=== PATIENT | female | born 2000 | race Caucasian/White ===

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

== ENCOUNTER → 2020-01-09 | Outpatient (CLI) | payer OTHER ==
[2020-01-09 13:43] LABS: HCT 44.7 % (34.0-46.0); HGB 14.2 gm/dL (11.4-16.0); MCH 26.4 pg (25.0-35.0); MCHC 31.9 g/dL (31.0-37.0); MCV 82.7 fL (80.0-100.0); Mean Platelet Volume 8.4; Platelet Count 333 k/uL (150-450); RDW 13.8 % (11.5-15.5); WBC 11.2 k/uL (4.0-11.0)
[2020-01-09 14:34] LABS: Appearance,Urine Clear (Clear); Bilirubin,Urine Negative (Negative); Blood,Urine Negative (Negative); Color,Urine Yellow; Glucose,Urine (UA) Negative (Negative); Ketones,Urine Negative (Negative); Leukocyte Esterase,Urine Negative (Negative); Nitrite,Urine Negative (Negative); PH, Urine 6.5 (5.0-8.0); Protein,Urine Negative (Negative); Specific Gravity,Urine 1.016 (1.001-1.035); Urobilinogen,Urine <2.0 mg/dL (<2.0)
[2020-01-09 18:35] LABS: Ferritin 30.1 ng/mL (10.0-291.0)
[2020-01-09 18:46] LABS: % Iron Saturation 8.33 (12.00-45.00); African American GFR (CKD) 107.4 (60.0-200.0); Albumin 4.5 g/dL (3.80-4.90); Albumin/Globulin Ratio 1.41 (1.60-3.17); Anion Gap 7.9 mmol/L (4.00-12.00); BUN/Creat Ratio 8.89 Ratio (12.00-20.00); Calcium 9.5 mg/dL (8.7-10.3); Carbon Dioxide 28.1 mmol/L (21.6-31.8); Globulin 3.2 g/dL (1.6-3.3); Non-African American GFR(CKD) 92.7 (60.0-200.0); Potassium 3.9 mmol/L (3.5-5.5); Total Bilirubin 0.5 mg/dL (0.2-1.2); Total Protein 7.7 g/dL (6.2-8.2)
== END | disposition home or self-care (01) ==
LOC: LABWHC1 13:21
PROVIDERS: ATTEND Internal Medicine
DX: N28.1 Cyst of kidney, acquired (principal); N39.0 Urinary tract infection, site not specified; D64.9 Anemia, unspecified; E55.9 Vitamin D deficiency, unspecified
CPT/HCPCS: 36415; 80053; 81003; 82306; 82728; 83540; 83550; 85027; 87086

== ENCOUNTER 2020-02-13 07:06 | Emergency (ER) | payer OTHER ==
[2020-02-13 07:15] VITALS: TEMP 98.1
[2020-02-13] MEDS ORDERED: SODIUM CHLORIDE 0.9% 1,000 ML IV STA (07:25)
--- NOTE | 2020-02-13 07:28 | ED ---
General Adult HPI - General Chief complaint: Syncope Stated complaint: Black outs Time Seen by Provider: 02/13/20 07:16 Source: patient, RN notes reviewed, old records reviewed Mode of arrival: ambulatory Limitations: no limitations - History of Present Illness Initial comments: 19-year-old female with history of PCO last, history of cyst on her kidney presenting with hematuria and near syncope. Patient was standing from bed this morning, she felt very lightheaded, she had some blurry vision and ringing in her ears and felt as though she was about to pass out. She denies any chest pain or palpitations associated with this. No abdominal pain. She's had no recent nausea vomiting or diarrhea. She said 2 days of blood in her urine. She does follow with nephrology and has history of cyst on her kidney. She denies significant back or flank pain. Denies fever. Denies URI symptoms. Denies cough or dyspnea. Symptoms of lightheadedness, ringing in ears and blurred vision have all resolved. - Related Data Home Medications Medication Instructions Recorded Confirmed Ibuprofen [Motrin] 800 mg PO Q6HR PRN 07/03/17 12/03/17 acetaZOLAMIDE [Diamox Sequels] 1,000 mg PO DAILY 07/03/17 12/03/17 Gabapentin [Neurontin] 300 mg PO BID 09/23/17 12/03/17 Acetaminophen Tab [Tylenol Tab] 325 - 650 mg PO Q6H PRN 10/24/17 12/03/17 Mirtazapine [Remeron] 30 mg PO HS 10/24/17 12/03/17 Amitriptyline HCl [Elavil] 10 mg PO HS 12/03/17 12/03/17 Norgestimate-Ethinyl Estradiol 1 tab PO DAILY 12/03/17 12/03/17 [Ortho Tri-Cyclen 28 Tablet] Previous Rx's Medication Instructions Recorded Ketorolac [Toradol] 10 mg PO DAILY PRN #10 tab 12/03/17 Cephalexin [Keflex] 500 mg PO Q12HR #20 cap 02/13/20 Allergies Allergy/AdvReac Type Severity Reaction Status Date / Time No Known Allergies Allergy Verified 12/03/17 18:38 Review of Systems ROS Statement: Those systems with pertinent positive or pertinent negative responses have been documented in the HPI. ROS Other: All systems not noted in ROS Statement are negative. Past Medical History Past Medical History: No Reported History Additional Past Medical History / Comment(s): chronic headaches, IIH History of Any Multi-Drug Resistant Organisms: None Reported Past Surgical History: No Surgical Hx Reported Additional Past Surgical History / Comment(s): wisdom teeth removal. Past Psychological History: No Psychological Hx Reported Smoking Status: Never smoker Past Alcohol Use History: None Reported Past Drug Use History: None Reported General Exam Limitations: no limitations General appearance: alert, in no apparent distress Head exam: Present: atraumatic, normocephalic Eye exam: Present: normal appearance, PERRL ENT exam: Present: normal oropharynx, mucous membranes dry Neck exam: Present: normal inspection. Absent: tenderness, meningismus Respiratory exam: Present: normal lung sounds bilaterally, respiratory distress Cardiovascular Exam: Present: regular rate, normal rhythm GI/Abdominal exam: Present: soft, distended, tenderness Extremities exam: Present: normal inspection, normal capillary refill. Absent: pedal edema Neurological exam: Present: alert, oriented X3, CN II-XII intact. Absent: motor sensory deficit Psychiatric exam: Present: normal affect, normal mood Skin exam: Present: warm, dry, intact. Absent: cyanosis, diaphoretic Course Vital Signs 02/13/20 02/13/20 02/13/20 07:10 07:15 07:57 Temperature 98.1 F Pulse Rate 106 H 92 Respiratory 18 20 Rate Blood Pressure 122/85 O2 Sat by Pulse 98 Oximetry 02/13/20 02/13/20 08:00 08:15 Temperature Pulse Rate 92 92 Respiratory 18 Rate Blood Pressure 124/80 124/80 O2 Sat by Pulse 95 95 Oximetry EKG Findings - EKG Comments: EKG Findings:: EKG: Normal sinus rhythm, rate of 84, WA interval 136, QRS duration 84, QTC [address] segment elevation. Medical Decision Making - Medical Decision Making 19-year-old female with hematuria, near-syncope, dehydration. Initially patient is mildly tachycardic, symptoms consistent with orthostatic hypotension and near syncope. Given IV fluids. CBC within normal limits including stable hemog lobin. Patient has normal electrolytes, normal kidney function. She does have urinalysis consistent with UTI and cultures obtained. She is started on ceftriaxone in the emergency department and prescribed Keflex. She will maintain oral hydration at home. She will return with worsening or changing symptoms. - Lab Data Result diagrams: 02/13/20 07:45 02/13/20 07:45 Lab Results 02/13/20 02/13/20 02/13/20 Range/Units 07:45 07:45 07:45 WBC 10.4 (4.0-11.0) k/uL RBC 5.29 (3.80-5.40) m/uL Hgb 14.0 (11.4-16.0) gm/dL Hct 43.3 (34.0-46.0) % MCV 81.9 (80.0-100.0) fL MCH 26.5 (25.0-35.0) pg MCHC 32.4 (31.0-37.0) g/dL RDW 13.5 (11.5-15.5) % Plt Count 311 (150-450) k/uL Neutrophils % 61 % Lymphocytes % 28 % Monocytes % 4 % Eosinophils % 4 % Basophils % 1 % Neutrophils # 6.3 (1.3-7.7) k/uL Lymphocytes # 2.9 (1.0-4.8) k/uL Monocytes # 0.4 (0-1.0) k/uL Eosinophils # 0.4 (0-0.7) k/uL Basophils # 0.1 (0-0.2) k/uL PT 10.2 (9.0-12.0) sec INR 1.0 (<1.2) APTT 24.0 (22.0-30.0) sec Sodium (137-145) mmol/L Potassium (3.5-5.1) mmol/L Chloride (98-107) mmol/L Carbon Dioxide (22-30) mmol/L Anion Gap mmol/L BUN (7-17) mg/dL Creatinine (0.52-1.04) mg/dL Est GFR (CKD-EPI)AfAm (>60 ml/min/1.73 sqM) Est GFR (CKD-EPI)NonAf (>60 ml/min/1.73 sqM) Glucose (74-99) mg/dL Calcium (8.4-10.2) mg/dL Magnesium (1.6-2.3) mg/dL Total Bilirubin (0.2-1.3) mg/dL AST (14-36) U/L ALT (4-34) U/L Alkaline Phosphatase (38-126) U/L Total Protein (6.3-8.2) g/dL Albumin (3.5-5.0) g/dL Urine Color Yellow Urine Appearance Turbid H (Clear) Urine pH 5.5 (5.0-8.0) Ur Specific [place] 1.030 (1.001-1.035) Urine Protein 1+ H (Negative) Urine Glucose (UA) Negative (Negative) Urine Ketones Negative (Negative) Urine Blood Trace H (Negative) Urine Nitrite Negative (Negative) Urine Bilirubin 1+ H (Negative) Urine Urobilinogen 2.0 (<2.0) mg/dL Ur Leukocyte Esterase Large H (Negative) Urine RBC 21 H (0-5) /hpf Urine WBC 119 H (0-5) /hpf Urine WBC Clumps Few H (None) /hpf Ur Squamous Epith Cells 21 H (0-4) /hpf Amorphous Sediment Rare H (None) /hpf Urine Bacteria Occasional H (None) /hpf Hyaline Casts 26 H (0-2) /lpf Urine Mucus Many H (None) /hpf Urine HCG, Qual (Not Detectd) 02/13/20 02/13/20 Range/Units 07:45 07:45 WBC (4.0-11.0) k/uL RBC (3.80-5.40) m/uL Hgb (11.4-16.0) gm/dL Hct (34.0-46.0) % MCV (80.0-100.0) fL MCH (25.0-35.0) pg MCHC (31.0-37.0) g/dL RDW (11.5-15.5) % Plt Count (150-450) k/uL Neutrophils % % Lymphocytes % % Monocytes % % Eosinophils % % Basophils % % Neutrophils # (1.3-7.7) k/uL Lymphocytes # (1.0-4.8) k/uL Monocytes # (0-1.0) k/uL Eosinophils # (0-0.7) k/uL Basophils # (0-0.2) k/uL PT (9.0-12.0) sec INR (<1.2) APTT (22.0-30.0) sec Sodium 142 (137-145) mmol/L Potassium 4.2 (3.5-5.1) mmol/L Chloride 105 (98-107) mmol/L Carbon Dioxide 25 (22-30) mmol/L Anion Gap 12 mmol/L BUN 11 (7-17) mg/dL Creatinine 0.96 (0.52-1.04) mg/dL Est GFR (CKD-EPI)AfAm >90 (>60 ml/min/1.73 sqM) Est GFR (CKD-EPI)NonAf 86 (>60 ml/min/1.73 sqM) Glucose 94 (74-99) mg/dL Calcium 9.6 (8.4-10.2) mg/dL Magnesium 2.0 (1.6-2.3) mg/dL Total Bilirubin 0.8 (0.2-1.3) mg/dL AST 33 (14-36) U/L ALT 37 H (4-34) U/L Alkaline Phosphatase 173 H (38-126) U/L Total Protein 8.2 (6.3-8.2) g/dL Albumin 4.5 (3.5-5.0) g/dL Urine Color Urine Appearance (Clear) Urine pH (5.0-8.0) Ur Specific [place] (1.001-1.035) Urine Protein (Negative) Urine Glucose (UA) (Negative) Urine Ketones (Negative) Urine Blood (Negative) Urine Nitrite (Negative) Urine Bilirubin (Negative) Urine Urobilinogen (<2.0) mg/dL Ur Leukocyte Esterase (Negative) Urine RBC (0-5) /hpf Urine WBC (0-5) /hpf Urine WBC Clumps (None) /hpf Ur Squamous Epith Cells (0-4) /hpf Amorphous Sediment (None) /hpf Urine Bacteria (None) /hpf Hyaline Casts (0-2) /lpf Urine Mucus (None) /hpf Urine HCG, Qual Not Detected (Not Detectd) Disposition Clinical Impression: Dehydration, UTI (urinary tract infection) Disposition: HOME SELF-CARE Condition: Good Instructions (If sedation given, give patient instructions): Dehydration (ED), Urinary Tract Infection in Women (ED) Additional Instructions: Please follow up with her primary care physician and if hematuria persist please 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 Prescriptions: Cephalexin [Keflex] 500 mg PO Q12HR #20 cap Is patient prescribed a controlled substance at d/c from ED?: No Referrals: None,Stated [Primary Care Provider] - 1-2 days Time of Disposition: 08:55
[2020-02-13 08:22] LABS: Prothrombin Time 10.2 sec (9.0-12.0)
[2020-02-13 08:25] LABS: ALT 37 U/L (4-34); AST 33 U/L (14-36); African American GFR (CKD) >90 (>60 ml/min/1.73 sqM); Albumin 4.5 g/dL (3.5-5.0); Alkaline Phosphatase 173 U/L (38-126); Anion Gap 12 mmol/L; Blood Urea Nitrogen 11 mg/dL (7-17); Calcium 9.6 mg/dL (8.4-10.2); Carbon Dioxide 25 mmol/L (22-30); Chloride 105 mmol/L (98-107); Glucose 94 mg/dL (74-99); Non-African American GFR(CKD) 86 (>60 ml/min/1.73 sqM); Potassium 4.2 mmol/L (3.5-5.1); Sodium 142 mmol/L (137-145); Total Bilirubin 0.8 mg/dL (0.2-1.3); Total Protein 8.2 g/dL (6.3-8.2)
[2020-02-13 08:37] LABS: Basophils # (A) 0.1 k/uL (0-0.2); Basophils % (A) 1 %; Eosinophils # (A) 0.4 k/uL (0-0.7); Eosinophils % (A) 4 %; HCT 43.3 % (34.0-46.0); Lymphocytes # (A) 2.9 k/uL (1.0-4.8); Lymphocytes % (A) 28 %; MCH 26.5 pg (25.0-35.0); MCHC 32.4 g/dL (31.0-37.0); MCV 81.9 fL (80.0-100.0); Monocytes # (A) 0.4 k/uL (0-1.0); Monocytes % (A) 4 %; Neutrophils # (A) 6.3 k/uL (1.3-7.7); Neutrophils % (A) 61 %; Platelet Count 311 k/uL (150-450); RBC 5.29 m/uL (3.80-5.40); RDW 13.5 % (11.5-15.5); WBC 10.4 k/uL (4.0-11.0)
[2020-02-13 08:40] LABS: Amorphous Sediment,Urine Rare /hpf; Appearance,Urine Turbid (Clear); Bacteria,Urine Occasional /hpf; Bilirubin,Urine 1+ (Negative); Blood,Urine Trace (Negative); Color,Urine Yellow; Glucose,Urine (UA) Negative (Negative); Hyaline Casts,Urine 26 /lpf (0-2); Ketones,Urine Negative (Negative); Leukocyte Esterase,Urine Large (Negative); Mucus,Urine Many /hpf; Nitrite,Urine Negative (Negative); PH, Urine 5.5 (5.0-8.0); Protein,Urine 1+ (Negative); RBC,Urine 21 /hpf (0-5); Squamous Epithelial Cell,Urine 21 /hpf (0-4); WBC,Urine 119 /hpf (0-5)
[2020-02-13] MEDS ORDERED: cefTRIAXone IN SWFI 1,000 MG/10 ML SYRINGE IVP STA ×2 (08:50→09:01)
[2020-02-13 09:11] VITALS: BP 107/77; PULSE 82
[2020-02-13 09:12] VITALS: RESP 20
== END 2020-02-13 09:13 | disposition home or self-care (01) ==
LOC: EC 07:06
DX: N39.0 Urinary tract infection, site not specified (principal); E86.0 Dehydration; Z79.899 Other long term (current) drug therapy
CPT/HCPCS: 36415; 80053; 83735; 85025; 85610; 85730; 81001; 81025; 99284; 96374; 96361; J0696

== ENCOUNTER 2020-04-11 22:37 | Emergency (ER) | payer OTHER ==
[2020-04-11 22:59] VITALS: BP 113/89; PULSE 146; RESP 18; TEMP 101.5
[2020-04-11] MEDS ORDERED: AMOXICILLIN 875 MG TAB PO STA (23:11)
[2020-04-11] MEDS ORDERED: IBUPROFEN 600 MG TAB PO STA (23:11)
--- NOTE | 2020-04-11 23:17 | ED ---
ENT HPI - General Chief complaint: ENT Stated complaint: Sore throat Time Seen by Provider: 04/11/20 23:00 Source: patient Mode of arrival: ambulatory Limitations: no limitations - History of Present Illness Initial comments: Patient is a 19-year-old male presenting to the emergency department with a chief complaint of a sore throat. Patient has recurrent strep pharyngitis. Patient states this feels exactly like it. Patient states she was at an urgent care yesterday and got tested negative Covid and strep pharyngitis. Patient reports symptoms began about 2 days ago with gradual increase in severity. Patient reports taking ibuprofen prior to arrival. Denies any alleviating or aggravating factors. - Related Data Home Medications Medication Instructions Recorded Confirmed Ibuprofen [Motrin] 800 mg PO Q6HR PRN 07/03/17 12/03/17 acetaZOLAMIDE [Diamox Sequels] 1,000 mg PO DAILY 07/03/17 12/03/17 Gabapentin [Neurontin] 300 mg PO BID 09/23/17 12/03/17 Acetaminophen Tab [Tylenol Tab] 325 - 650 mg PO Q6H PRN 10/24/17 12/03/17 Mirtazapine [Remeron] 30 mg PO HS 10/24/17 12/03/17 Amitriptyline HCl [Elavil] 10 mg PO HS 12/03/17 12/03/17 Norgestimate-Ethinyl Estradiol 1 tab PO DAILY 12/03/17 12/03/17 [Ortho Tri-Cyclen 28 Tablet] Previous Rx's Medication Instructions Recorded Ketorolac [Toradol] 10 mg PO DAILY PRN #10 tab 12/03/17 Cephalexin [Keflex] 500 mg PO Q12HR #20 cap 02/13/20 Amoxicillin 875 mg PO Q12HR #20 tablet 04/11/20 Allergies Allergy/AdvReac Type Severity Reaction Status Date / Time No Known Allergies Allergy Verified 04/11/20 22:59 Review of Systems ROS Statement: Those systems with pertinent positive or pertinent negative responses have been documented in the HPI. ROS Other: All systems not noted in ROS Statement are negative. Past Medical History Past Medical History: No Reported History Additional Past Medical History / Comment(s): chronic headaches, IIH History of Any Multi-Drug Resistant Organisms: None Reported Past Surgical History: No Surgical Hx Reported Additional Past Surgical History / Comment(s): wisdom teeth removal. Past Psychological History: No Psychological Hx Reported Smoking Status: Never smoker Past Alcohol Use History: None Reported Past Drug Use History: None Reported General Exam Limitations: no limitations General appearance: alert, in no apparent distress Head exam: Present: atraumatic, normocephalic, normal inspection Eye exam: Present: normal appearance, PERRL, EOMI Pupils: Present: normal accommodation ENT exam: Present: normal exam, normal oropharynx (Swollen, erythematous tonsils with exudates), mucous membranes moist, TM's normal bilaterally, normal external ear exam Neck exam: Present: normal inspection, full ROM, lymphadenopathy Respiratory exam: Present: normal lung sounds bilaterally. Absent: respiratory distress Cardiovascular Exam: Present: regular rate, normal rhythm, normal heart sounds Extremities exam: Present: normal inspection, full ROM Back exam: Present: normal inspection, full ROM Neurological exam: Present: alert, oriented X3 Psychiatric exam: Present: normal affect, normal mood Skin exam: Present: warm, dry, intact, normal color Course Vital Signs 04/11/20 22:55 Temperature 101.5 F H Pulse Rate 146 H Respiratory 18 Rate Blood Pressure 113/89 O2 Sat by Pulse 98 Oximetry Medical Decision Making - Medical Decision Making Patient is a 19-year-old female presenting to emergency Department with a chief complaint of a sore throat. On exam patient does fit the [facility] criteria for strep pharyngitis. Patient will be started on amoxicillin and 80. 10 day course of amoxicillin. Patient given antipyretics and amoxicillin. Return parameters discussed. Case discussed with physician. Disposition Clinical Impression: Strep pharyngitis Disposition: HOME SELF-CARE Condition: Stable Instructions (If sedation given, give patient instructions): Pharyngitis (ED) Prescriptions: Amoxicillin 875 mg PO Q12HR #20 tablet Is patient prescribed a controlled substance at d/c from ED?: No Referrals: None,Stated [Primary Care Provider] - 1-2 days Time of Disposition: 23:16
== END 2020-04-11 23:33 | disposition home or self-care (01) ==
LOC: EC 22:37
DX: J02.0 Streptococcal pharyngitis (principal); Z79.899 Other long term (current) drug therapy
CPT/HCPCS: 99282

== ENCOUNTER 2020-12-03 01:10 | Emergency (ER) | payer OTHER ==
[2020-12-03 01:17] VITALS: BP 123/81; PULSE 117; RESP 16; TEMP 98.6
--- NOTE | 2020-12-03 01:39 | ED ---
Recheck HPI - General Chief Complaint: Recheck/Abnormal Lab/Rx Stated Complaint: STD Test Time Seen by Provider: 12/03/20 01:17 Source: patient Mode of arrival: ambulatory Limitations: no limitations - History of Present Illness Initial Comments: 20 year-old female patient presents to the emergency department requesting STI testing. Patient states that she was recently treated for a silent case of gonorrhea and chlamydia. States that she completed treatment and full. States that she has not had intercourse with that partner again, but did have sex with a new partner about a week after completing treatment. She states that her new partner states that she gave him an STI. She denies any current vaginal bleeding or discharge. Denies any abdominal pain. Denies hematuria, dysuria, urinary frequency, urinary urgency. Denies any fevers or chills. Denies chance of . Patient denies any recent rash, cough, shortness of breath, chest pain, nausea, vomiting, diarrhea, constipation, back pain, numbness, tingling, dizziness, weakness, headache, visual changes, or any other complaints. - Related Data Home Medications Medication Instructions Recorded Confirmed Ibuprofen [Motrin] 800 mg PO Q6HR PRN 07/03/17 12/03/17 acetaZOLAMIDE [Diamox Sequels] 1,000 mg PO DAILY 07/03/17 12/03/17 Gabapentin [Neurontin] 300 mg PO BID 09/23/17 12/03/17 Acetaminophen Tab [Tylenol Tab] 325 - 650 mg PO Q6H PRN 10/24/17 12/03/17 Mirtazapine [Remeron] 30 mg PO HS 10/24/17 12/03/17 Amitriptyline HCl [Elavil] 10 mg PO HS 12/03/17 12/03/17 Norgestimate-Ethinyl Estradiol 1 tab PO DAILY 12/03/17 12/03/17 [Ortho Tri-Cyclen 28 Tablet] Previous Rx's Medication Instructions Recorded Ketorolac [Toradol] 10 mg PO DAILY PRN #10 tab 12/03/17 Cephalexin [Keflex] 500 mg PO Q12HR #20 cap 02/13/20 Amoxicillin 875 mg PO Q12HR #20 tablet 04/11/20 Allergies Allergy/AdvReac Type Severity Reaction Status Date / Time No Known Allergies Allergy Verified 12/03/20 01:13 Review of Systems ROS Statement: Those systems with pertinent positive or pertinent negative responses have been documented in the HPI. ROS Other: All systems not noted in ROS Statement are negative. Past Medical History Past Medical History: No Reported History Additional Past Medical History / Comment(s): chronic headaches, IIH History of Any Multi-Drug Resistant Organisms: None Reported Past Surgical History: No Surgical Hx Reported Additional Past Surgical History / Comment(s): wisdom teeth removal. eye surgery Past Psychological History: No Psychological Hx Reported Smoking Status: Vaper Past Alcohol Use History: None Reported Past Drug Use History: None Reported General Exam Limitations: no limitations General appearance: alert, in no apparent distress, other (This is a well- developed, well-nourished adult female patient in no acute distress. Vital signs upon presentation are temperature 98.6F, pulse 117, respirations 16, blood pressure 123/81, pulse ox 98% on room air.) Respiratory exam: Present: normal lung sounds bilaterally. Absent: respiratory distress, wheezes, rales, rhonchi, stridor Cardiovascular Exam: Present: regular rate, normal rhythm, normal heart sounds. Absent: systolic murmur, diastolic murmur, rubs, gallop, clicks GI/Abdominal exam: Present: soft, normal bowel sounds. Absent: distended, tenderness, guarding, rebound, rigid Neurological exam: Present: alert, oriented X3, CN II-XII intact Psychiatric exam: Present: normal affect, normal mood Skin exam: Present: warm, dry, intact, normal color. Absent: rash Course Vital Signs 12/03/20 01:14 Temperature 98.6 F Pulse Rate 117 H Respiratory 16 Rate Blood Pressure 123/81 O2 Sat by Pulse 98 Oximetry Medical Decision Making - Medical Decision Making 20 year-old female patient presents to the emergency department for evaluation f or possible STI. Patient is having no symptoms. No pain, no discharge. No abdominal tenderness. We did do vaginal swabs. There are several lab for evaluation. Urinalysis is negative. She is not . Since she is having no symptoms of withdrawal treatment at this time pending culture results. She is discharged follow up with her primary care physician and her rn surgery icu as soon as possible. Return parameters were discussed in detail. She verbalizes understanding and agrees with this plan. - Lab Data Lab Results 01/08/21 01/08/21 01/08/21 Range/Units 02:01 02:01 02:01 Urine Color Light Yellow Urine Appearance Clear (Clear) Urine pH 7.5 (5.0-8.0) Ur Specific [place] 1.016 (1.001-1.035) Urine Protein Negative (Negative) Urine Glucose (UA) Negative (Negative) Urine Ketones Negative (Negative) Urine Blood Negative (Negative) Urine Nitrite Negative (Negative) Urine Bilirubin Negative (Negative) Urine Urobilinogen <2.0 (<2.0) mg/dL Ur Leukocyte Esterase Trace H (Negative) Urine RBC 1 (0-5) /hpf Urine WBC 4 (0-5) /hpf Ur Squamous Epith Cells 4 (0-4) /hpf Urine Bacteria Rare H (None) /hpf Urine Mucus Rare H (None) /hpf Urine HCG, Qual Not Detected (Not Detectd) Trichomonas Ag (Rapid) Negative (Negative) Disposition Clinical Impression: Concern about STD in female without diagnosis Disposition: HOME SELF-CARE Condition: Good Instructions (If sedation given, give patient instructions): Sexually Transmitted Diseases (ED) Additional Instructions: Follow-up with her primary care physician rn surgery icu for further evaluation as soon as possible. Return to the emergency department for any new, worsening, or concerning symptoms. Is patient prescribed a controlled substance at d/c from ED?: No Referrals: Catalina oMran MD [Primary Care Provider] - 1-2 days Time of Disposition: 02:28
[2020-12-03 02:27] LABS: Appearance,Urine Clear (Clear); Bacteria,Urine Rare /hpf; Bilirubin,Urine Negative (Negative); Blood,Urine Negative (Negative); Color,Urine Light Yellow; Glucose,Urine (UA) Negative (Negative); Ketones,Urine Negative (Negative); Leukocyte Esterase,Urine Trace (Negative); Mucus,Urine Rare /hpf; Nitrite,Urine Negative (Negative); PH, Urine 7.5 (5.0-8.0); Protein,Urine Negative (Negative); RBC,Urine 1 /hpf (0-5); Specific Gravity,Urine 1.016 (1.001-1.035); Squamous Epithelial Cell,Urine 4 /hpf (0-4); Urobilinogen,Urine <2.0 mg/dL (<2.0); WBC,Urine 4 /hpf (0-5)
[2020-12-04 14:53] LABS: C. trachomatis,PCR Negative (Neg,Equiv); Chlamydia trachomatis Source Vagina; N. gonorrhoeae,PCR Negative (Neg,Equiv); Neisseria Source Vagina
== END 2020-12-03 02:36 | disposition home or self-care (01) ==
LOC: EC 01:10
DX: Z71.1 Person with feared health complaint in whom no diagnosis is made (principal); F17.290 Nicotine dependence, other tobacco product, uncomplicated; Z79.899 Other long term (current) drug therapy; Z79.3 Long term (current) use of hormonal contraceptives
CPT/HCPCS: 81001; 81025; 87070; 87491; 87591; 87808; 99283

== ENCOUNTER 2021-01-09 18:05 | Emergency (ER) | payer OTHER ==
[2021-01-09 18:17] VITALS: RESP 16; TEMP 100.4
[2021-01-09] MEDS ORDERED: AMOXIC-POT CLAV 875-125MG 1 EACH TAB PO STA (19:56)
--- NOTE | 2021-01-09 19:59 | ED ---
ENT HPI - General Chief complaint: ENT Stated complaint: Sore throat, Fever Time Seen by Provider: 01/09/21 18:15 Source: patient Mode of arrival: ambulatory Limitations: no limitations - History of Present Illness Initial comments: 20-year-old female with past medical history of chronic headaches who presents emergency room with reported sore throat for the past 2 days. States that she gets strep throat twice a year and feels like her symptoms are consistent. Has been taking Motrin and Tylenol for fever control. Denies any headaches or visual changes. No neck pain or stiffness. Denies cough. No sick contacts with similar symptoms denies abdominal pain. No nausea, vomiting or diarrhea. No changes in her bladder habits. No other alleviating, precipitating or modifying factors - Related Data Home Medications Medication Instructions Recorded Confirmed Ibuprofen [Motrin] 800 mg PO Q6HR PRN 07/03/17 12/03/17 acetaZOLAMIDE [Diamox Sequels] 1,000 mg PO DAILY 07/03/17 12/03/17 Gabapentin [Neurontin] 300 mg PO BID 09/23/17 12/03/17 Acetaminophen Tab [Tylenol Tab] 325 - 650 mg PO Q6H PRN 10/24/17 12/03/17 Mirtazapine [Remeron] 30 mg PO HS 10/24/17 12/03/17 Amitriptyline HCl [Elavil] 10 mg PO HS 12/03/17 12/03/17 Norgestimate-Ethinyl Estradiol 1 tab PO DAILY 12/03/17 12/03/17 [Ortho Tri-Cyclen 28 Tablet] Previous Rx's Medication Instructions Recorded Ketorolac [Toradol] 10 mg PO DAILY PRN #10 tab 12/03/17 Cephalexin [Keflex] 500 mg PO Q12HR #20 cap 02/13/20 Amoxicillin 875 mg PO Q12HR #20 tablet 04/11/20 Amoxicillin/Potassium Clav 1 tab PO Q12HR 1 Days #20 tab 01/09/21 [Augmentin 875-125 Tablet] Allergies Allergy/AdvReac Type Severity Reaction Status Date / Time No Known Allergies Allergy Verified 01/09/21 18:16 Review of Systems ROS Statement: Those systems with pertinent positive or pertinent negative responses have been documented in the HPI. ROS Other: All systems not noted in ROS Statement are negative. Past Medical History Past Medical History: No Reported History Additional Past Medical History / Comment(s): chronic headaches History of Any Multi-Drug Resistant Organisms: None Reported Past Surgical History: No Surgical Hx Reported Additional Past Surgical History / Comment(s): eye surgery Past Psychological History: No Psychological Hx Reported Smoking Status: Vaper Past Alcohol Use History: None Reported Past Drug Use History: None Reported General Exam Limitations: no limitations General appearance: alert, in no apparent distress Head exam: Present: atraumatic, normocephalic, normal inspection Eye exam: Present: normal appearance, PERRL, EOMI. Absent: scleral icterus, conjunctival injection, periorbital swelling ENT exam: Present: mucous membranes moist, normal external ear exam, other (no lymphadenopathy, tonsils enlarged bilaterally and erythematous. uvula midline. no brawny edema of the neck. No dental abscess. Floor of mouth soft. No tongue swelling. ) Neck exam: Present: normal inspection. Absent: tenderness, meningismus, lymphadenopathy Respiratory exam: Present: normal lung sounds bilaterally. Absent: respiratory distress, wheezes, rales, rhonchi, stridor Cardiovascular Exam: Present: normal rhythm, tachycardia, normal heart sounds. Absent: systolic murmur, diastolic murmur, rubs, gallop, clicks GI/Abdominal exam: Present: soft, normal bowel sounds. Absent: distended, tenderness, guarding, rebound, rigid Extremities exam: Present: normal inspection, full ROM, normal capillary refill. Absent: tenderness, pedal edema, joint swelling, calf tenderness Back exam: Present: normal inspection Neurological exam: Present: alert, oriented X3, CN II-XII intact Psychiatric exam: Present: normal affect, normal mood Skin exam: Present: warm, dry, intact, normal color. Absent: rash Course Vital Signs 01/09/21 01/09/21 18:13 20:03 Temperature 100.4 F H Pulse Rate 129 H 112 H Respiratory 16 16 Rate Blood Pressure 136/77 119/75 O2 Sat by Pulse 100 99 Oximetry Medical Decision Making - Medical Decision Making On arrival patient is placed into room 22. She is swabbed for strep. Patient is offered Motrin and Tylenol however she was refusing. strep does return and is negative. Discuss results with the patient. Did recommend further workup donahue patsy the patient is refusing at this time stating her symptoms are consistent to when she has been diagnosed with strep multiple times in the past. I did offer treatment for which the patient did agree to. Given a dose of Augmentin in the emergency room. Patient is to follow-up with her primary care doctor in 2-4 days for reevaluation. Take Motrin and Tylenol for fever and pain control. Return to the emergency department for any new or worsening symptoms or should she not have resolution in her sore throat. Patient agreed to this and she was discharged home in stable condition - Lab Data Lab Results 01/09/21 Range/Units 19:05 Group A Strep Rapid Negative (Negative) Disposition Clinical Impression: Pharyngitis, Fever Disposition: HOME SELF-CARE Condition: Stable Instructions (If sedation given, give patient instructions): Pharyngitis (ED) Additional Instructions: please follow-up with ENT in 1 week. Return to the emergency room for any new or worsening symptoms Prescriptions: Amoxicillin/Potassium Clav [Augmentin 875-125 Tablet] 1 tab PO Q12HR 1 Days #20 tab Is patient prescribed a controlled substance at d/c from ED?: No Referrals: Catalina Moran MD [Primary Care Provider] - 1-2 days Kane Encinas DO [Doctor of Osteopathic Medicine] - 1-2 days Time of Disposition: 19:59
[2021-01-09 20:04] VITALS: BP 119/75; PULSE 112
== END 2021-01-09 20:05 | disposition home or self-care (01) ==
LOC: EC 18:05
DX: J02.9 Acute pharyngitis, unspecified (principal); F17.290 Nicotine dependence, other tobacco product, uncomplicated; Z79.899 Other long term (current) drug therapy; Z79.3 Long term (current) use of hormonal contraceptives
CPT/HCPCS: 87081; 87430; 99283

== ENCOUNTER 2021-03-16 15:05 | Emergency (ER) | payer OTHER ==
[2021-03-16 15:47] VITALS: RESP 18
[2021-03-16 16:27] LABS: Appearance,Urine Cloudy (Clear); Bilirubin,Urine Negative (Negative); Blood,Urine Small (Negative); Budding Yeast,Urine Occasional /hpf; Color,Urine Yellow; Glucose,Urine (UA) Negative (Negative); Hyaline Casts,Urine 2 /lpf (0-2); Ketones,Urine Negative (Negative); Leukocyte Esterase,Urine Large (Negative); Mucus,Urine Many /hpf; Nitrite,Urine Negative (Negative); Protein,Urine 1+ (Negative); RBC,Urine 25 /hpf (0-5); Specific Gravity,Urine 1.024 (1.001-1.035); Squamous Epithelial Cell,Urine 6 /hpf (0-4); Urobilinogen,Urine <2.0 mg/dL (<2.0); WBC,Urine 75 /hpf (0-5)
[2021-03-16] MEDS ORDERED: KETOROLAC 15 MG/ML 1 ML VIAL IVP STA ×2 (16:56→17:14)
--- NOTE | 2021-03-16 17:17 | ED ---
General Adult HPI - General Source: patient, RN notes reviewed Mode of arrival: ambulatory Limitations: no limitations <Nguyễn Serrano - Last Filed: 03/16/21 19:11> <Breanna Broussard - Last Filed: 03/16/21 19:41> - General Chief complaint: Abdominal Pain Stated complaint: Female Time Seen by Provider: 03/16/21 16:33 - History of Present Illness Initial comments: 20-year-old female with a past medical history of chronic headaches presents to the emergency room for a chief complaint of pelvic pain. Patient states last night she was sitting on her couch and she felt a sudden pain. States she had a sudden episode of vaginal bleeding that lasted about 10 seconds it was heavier than a period. She states that the bleeding then resolved but the pain has continued. Patient states it is mostly in the suprapubic area. Patient states she did test positive for Trichomonas a month ago and was treated with 4 pills at once. She has not had a retest to confirm this is negative but is due to do this in one week. She has not had sexual intercourse with that partner again. She was tested for gonorrhea and chlamydia at that time. Patient states she has not noticed any additional vaginal discharge or any other symptoms.Patient has no other complaints at this time including shortness of breath, chest pain, nausea or vomiting, headache, or visual changes. (Nguyễn Serrano) - Related Data Home Medications Medication Instructions Recorded Confirmed Albuterol Sulfate [Proair Hfa] 1 - 2 puff INHALATION RT-Q6H PRN 03/16/21 03/16/21 Norelgestromin/Ethin.estradiol 1 patch TRANSDERM WE 03/16/21 03/16/21 [Xulane 150-35 Mcg/Day Patch] Previous Rx's Medication Instructions Recorded Cephalexin [Keflex] 500 mg PO TID 7 Days #21 cap 03/16/21 Allergies Allergy/AdvReac Type Severity Reaction Status Date / Time No Known Allergies Allergy Verified 03/16/21 17:15 Review of Systems ROS Other: All systems not noted in ROS Statement are negative. <Nguyễn Serrano - Last Filed: 03/16/21 19:11> ROS Other: All systems not noted in ROS Statement are negative. <Breanna Broussard - Last Filed: 03/16/21 19:41> ROS Statement: Those systems with pertinent positive or pertinent negative responses have been documented in the HPI. Past Medical History Past Medical History: No Reported History Additional Past Medical History / Comment(s): chronic headaches History of Any Multi-Drug Resistant Organisms: None Reported Past Surgical History: No Surgical Hx Reported Additional Past Surgical History / Comment(s): eye surgery Past Psychological History: No Psychological Hx Reported Smoking Status: Vaper Past Alcohol Use History: None Reported Past Drug Use History: None Reported <Nguyễn Serrano P - Last Filed: 03/16/21 19:11> General Exam Limitations: no limitations General appearance: alert, in no apparent distress Head exam: Present: atraumatic, normocephalic, normal inspection Eye exam: Present: normal appearance, PERRL, EOMI. Absent: scleral icterus, conjunctival injection, periorbital swelling ENT exam: Present: normal exam, mucous membranes moist Neck exam: Present: normal inspection. Absent: tenderness, meningismus, lymphadenopathy Respiratory exam: Present: normal lung sounds bilaterally Cardiovascular Exam: Present: regular rate, normal rhythm, normal heart sounds. Absent: systolic murmur, diastolic murmur, rubs, gallop, clicks GI/Abdominal exam: Present: soft, tenderness (Mild suprapubic tenderness), normal bowel sounds. Absent: distended, guarding, rebound, rigid External exam: Present: normal external exam. Absent: erythema, swelling, lesions, lacerations, ecchymosis Speculum exam: Present: vaginal discharge (whitish padron vaginal discharge). Absent: normal speculum exam, erythema, cervical discharge, vaginal bleeding, foreign body, tissue, laceration By manual exam: Present: uterine tenderness. Absent: normal by manual exam, cervical motion tenderness <Nguyễn Serrano P - Last Filed: 03/16/21 19:11> Course Vital Signs 03/16/21 03/16/21 15:44 17:36 Temperature 98.3 F 98.8 F Pulse Rate 93 75 Respiratory 18 18 Rate Blood Pressure 125/80 111/78 O2 Sat by Pulse 98 99 Oximetry Medical Decision Making - Lab Data Result diagrams: 03/16/21 17:21 03/16/21 17:21 <Nguyễn Serrano P - Last Filed: 03/16/21 19:11> - Lab Data Result diagrams: 03/16/21 17:21 03/16/21 17:21 <Breanna Broussard M - Last Filed: 03/16/21 19:41> - Medical Decision Making Vitals are stable. HPI physical exam is documented. Patient does have some mild suprapubic tenderness. Pelvic exam does reveal white vaginal discharge. CBC is unremarkable. White count 9.7. (Nguyễn Serrano) - Lab Data Lab Results 03/16/21 03/16/21 03/16/21 Range/Units 16:05 16:05 17:21 WBC 9.7 (4.0-11.0) k/uL RBC 4.94 (3.80-5.40) m/uL Hgb 13.6 (11.4-16.0) gm/dL Hct 41.2 (34.0-46.0) % MCV 83.4 (80.0-100.0) fL MCH 27.5 (25.0-35.0) pg MCHC 33.0 (31.0-37.0) g/dL RDW 14.1 (11.5-15.5) % Plt Count 237 (150-450) k/uL MPV 9.0 Neutrophils % 55 % Lymphocytes % 36 % Monocytes % 4 % Eosinophils % 3 % Basophils % 1 % Neutrophils # 5.4 (1.3-7.7) k/uL Lymphocytes # 3.5 (1.0-4.8) k/uL Monocytes # 0.4 (0-1.0) k/uL Eosinophils # 0.3 (0-0.7) k/uL Basophils # 0.1 (0-0.2) k/uL Sodium (137-145) mmol/L Potassium (3.5-5.1) mmol/L Chloride (98-107) mmol/L Carbon Dioxide (22-30) mmol/L Anion Gap mmol/L BUN (7-17) mg/dL Creatinine (0.52-1.04) mg/dL Est GFR (CKD-EPI)AfAm (>60 ml/min/1.73 sqM) Est GFR (CKD-EPI)NonAf (>60 ml/min/1.73 sqM) Glucose (74-99) mg/dL Calcium (8.4-10.2) mg/dL Total Bilirubin (0.2-1.3) mg/dL AST (14-36) U/L ALT (4-34) U/L Alkaline Phosphatase (38-126) U/L Total Protein (6.3-8.2) g/dL Albumin (3.5-5.0) g/dL Amylase (30-110) U/L Lipase (23-300) U/L Urine Color Yellow Urine Appearance Cloudy H (Clear) Urine pH 7.0 (5.0-8.0) Ur Specific [place] 1.024 (1.001-1.035) Urine Protein 1+ H (Negative) Urine Glucose (UA) Negative (Negative) Urine Ketones Negative (Negative) Urine Blood Small H (Negative) Urine Nitrite Negative (Negative) Urine Bilirubin Negative (Negative) Urine Urobilinogen <2.0 (<2.0) mg/dL Ur Leukocyte Esterase Large H (Negative) Urine RBC 25 H (0-5) /hpf Urine WBC 75 H (0-5) /hpf Ur Squamous Epith Cells 6 H (0-4) /hpf Hyaline Casts 2 (0-2) /lpf Urine Mucus Many H (None) /hpf Urine Yeast (Budding) Occasional H (None) /hpf Urine HCG, Qual Not Detected (Not Detectd) Trichomonas Ag (Rapid) (Negative) 03/16/21 03/16/21 Range/Units 17:21 17:21 WBC (4.0-11.0) k/uL RBC (3.80-5.40) m/uL Hgb (11.4-16.0) gm/dL Hct (34.0-46.0) % MCV (80.0-100.0) fL MCH (25.0-35.0) pg MCHC (31.0-37.0) g/dL RDW (11.5-15.5) % Plt Count (150-450) k/uL MPV Neutrophils % % Lymphocytes % % Monocytes % % Eosinophils % % Basophils % % Neutrophils # (1.3-7.7) k/uL Lymphocytes # (1.0-4.8) k/uL Monocytes # (0-1.0) k/uL Eosinophils # (0-0.7) k/uL Basophils # (0-0.2) k/uL Sodium 139 (137-145) mmol/L Potassium 4.3 (3.5-5.1) mmol/L Chloride 107 (98-107) mmol/L Carbon Dioxide 22 (22-30) mmol/L Anion Gap 10 mmol/L BUN 5 L (7-17) mg/dL Creatinine 0.86 (0.52-1.04) mg/dL Est GFR (CKD-EPI)AfAm >90 (>60 ml/min/1.73 sqM) Est GFR (CKD-EPI)NonAf >90 (>60 ml/min/1.73 sqM) Glucose 90 (74-99) mg/dL Calcium 9.5 (8.4-10.2) mg/dL Total Bilirubin 0.6 (0.2-1.3) mg/dL AST 32 (14-36) U/L ALT 28 (4-34) U/L Alkaline Phosphatase 108 (38-126) U/L Total Protein 7.8 (6.3-8.2) g/dL Albumin 4.2 (3.5-5.0) g/dL Amylase 63 (30-110) U/L Lipase 72 (23-300) U/L Urine Color Urine Appearance (Clear) Urine pH (5.0-8.0) Ur Specific [place] (1.001-1.035) Urine Protein (Negative) Urine Glucose (UA) (Negative) Urine Ketones (Negative) Urine Blood (Negative) Urine Nitrite (Negative) Urine Bilirubin (Negative) Urine Urobilinogen (<2.0) mg/dL Ur Leukocyte Esterase (Negative) Urine RBC (0-5) /hpf Urine WBC (0-5) /hpf Ur Squamous Epith Cells (0-4) /hpf Hyaline Casts (0-2) /lpf Urine Mucus (None) /hpf Urine Yeast (Budding) (None) /hpf Urine HCG, Qual (Not Detectd) Trichomonas Ag (Rapid) Negative (Negative) Disposition Is patient prescribed a controlled substance at d/c from ED?: No Time of Disposition: 19:11 <Nguyễn Serrano P - Last Filed: 03/16/21 19:11> <Breanna Broussard - Last Filed: 03/16/21 19:41> Clinical Impression: Dyspareunia, Urinary tract infection Disposition: HOME SELF-CARE Condition: Good Instructions (If sedation given, give patient instructions): Urinary Tract Infection in Women (ED), Dyspareunia in Women (DC) Additional Instructions: Please take antibiotic as directed. Follow-up with your HIGH REACH OPERATOR at your appointment to discuss these issues. If you have worsening symptoms return to the emergency room. Prescriptions: Cephalexin [Keflex] 500 mg PO TID 7 Days #21 cap Referrals: Catalina Moran MD [Primary Care Provider] - 1-2 days
[2021-03-16 17:35] LABS: Basophils # (A) 0.1 k/uL (0-0.2); Basophils % (A) 1 %; Eosinophils # (A) 0.3 k/uL (0-0.7); Eosinophils % (A) 3 %; HCT 41.2 % (34.0-46.0); HGB 13.6 gm/dL (11.4-16.0); Lymphocytes # (A) 3.5 k/uL (1.0-4.8); Lymphocytes % (A) 36 %; MCH 27.5 pg (25.0-35.0); MCV 83.4 fL (80.0-100.0); Monocytes # (A) 0.4 k/uL (0-1.0); Monocytes % (A) 4 %; Neutrophils # (A) 5.4 k/uL (1.3-7.7); Neutrophils % (A) 55 %; Platelet Count 237 k/uL (150-450); RBC 4.94 m/uL (3.80-5.40); RDW 14.1 % (11.5-15.5); WBC 9.7 k/uL (4.0-11.0)
[2021-03-16 17:37] VITALS: BP 111/78; PULSE 75; TEMP 98.8
[2021-03-16 17:48] LABS: ALT 28 U/L (4-34); AST 32 U/L (14-36); African American GFR (CKD) >90 (>60 ml/min/1.73 sqM); Albumin 4.2 g/dL (3.5-5.0); Alkaline Phosphatase 108 U/L (38-126); Amylase 63 U/L (30-110); Anion Gap 10 mmol/L; Blood Urea Nitrogen 5 mg/dL (7-17); Calcium 9.5 mg/dL (8.4-10.2); Carbon Dioxide 22 mmol/L (22-30); Chloride 107 mmol/L (98-107); Glucose 90 mg/dL (74-99); Lipase 72 U/L (23-300); Non-African American GFR(CKD) >90 (>60 ml/min/1.73 sqM); Potassium 4.3 mmol/L (3.5-5.1); Sodium 139 mmol/L (137-145); Total Bilirubin 0.6 mg/dL (0.2-1.3); Total Protein 7.8 g/dL (6.3-8.2)
[2021-03-16] MEDS ORDERED: CEPHALEXIN 500MG STARTER PACK 4 CAP BTL PO STA (18:56)
--- NOTE | 2021-03-16 19:25 | US ---
EXAMINATION TYPE: US transvaginal DATE OF EXAM: 03/16/2021 COMPARISON: US 2018 CLINICAL HISTORY: pain. Bleeding and pelvic pain x 1 day, patient on control, history of PCOS TECHNIQUE: Transvaginal ER exam. Date of LMP: 02/19/2021 EXAM MEASUREMENTS: Uterus: 4.9 x 2.2 x 3.3 cm Endometrial Stripe: 0.4 cm Right Ovary: 2.9 x 1.3 x 1.9 cm Left Ovary: 1.9 x 1.2 x 1.4 cm 1. Uterus: Retroverted. Normal. 2. Endometrium: Normal. 3. Right Ovary: Normal. 4. Left Ovary: Normal. Spectral, color and waveform doppler imaging shows good arterial and venous flow within the left ov carli, good arterial flow seen within the right ovary, unable to obtain venous flow within the right ov carli. 5. Bilateral Adnexa: Normal. 6. Posterior cul de-sac: Normal. No pelvic free fluid. IMPRESSION: 1. Positive arterial and venous flow of the left ovary. 2. Positive arterial flow of the right ovary. Right ovarian venous flow was not demonstrated with spe ctral Doppler. However the right ovary is unremarkable in appearance with no secondary signs of ovari an torsion. 3. Retroverted normal uterus. 4. No pelvic free fluid.
[2021-03-16] MEDS ORDERED: AZITHROMYCIN 500 MG TAB PO STA (19:40)
[2021-03-16] MEDS ORDERED: cefTRIAXone IN SWFI 1,000 MG/10 ML SYRINGE IVP STA (19:40)
[2021-03-17 14:59] LABS: C. trachomatis,PCR Negative (Neg,Equiv); Chlamydia trachomatis Source Vagina; N. gonorrhoeae,PCR Negative (Neg,Equiv); Neisseria Source Vagina
== END 2021-03-16 19:57 | disposition home or self-care (01) ==
LOC: EC 15:05
DX: N94.10 Unspecified dyspareunia (principal); N39.0 Urinary tract infection, site not specified; N89.8 Other specified noninflammatory disorders of vagina; F17.290 Nicotine dependence, other tobacco product, uncomplicated
CPT/HCPCS: 36415; 76830; 80053; 81001; 81025; 82150; 83690; 85025; 87070; 87491; 87591; 87808; 93975; 96374; 96375; 99284

== ENCOUNTER 2022-04-03 09:02 | Emergency (ER) | payer OTHER ==
[2022-04-03 09:08] VITALS: TEMP 98.2
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
[2022-04-03] MEDS ORDERED: ACET/COD 300 MG/30 MG STARTER PACK 6 TAB BTL PO STA (10:39)
[2022-04-03] MEDS ORDERED: ONDANSETRON 4 MG ODT STARTER PACK 2 TAB BTL PO STA (10:39)
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
[2022-04-03 11:06] VITALS: BP 130/88; PULSE 90; RESP 18
== END 2022-04-03 10:54 | disposition home or self-care (01) ==
LOC: EC 09:02
DX: S06.0X9A Concussion with loss of consciousness of unspecified duration, initial encounter (principal); R40.2362 Coma scale, best motor response, obeys commands, at arrival to emergency department; R40.2142 Coma scale, eyes open, spontaneous, at arrival to emergency department; R40.2252 Coma scale, best verbal response, oriented, at arrival to emergency department; F17.290 Nicotine dependence, other tobacco product, uncomplicated; Z79.51 Long term (current) use of inhaled steroids; V49.60XA Unspecified car occupant injured in collision with unspecified motor vehicles in traffic accident, initial encounter; Y92.410 Unspecified street and highway as the place of occurrence of the external cause
CPT/HCPCS: 70450; 99284; S0119

== ENCOUNTER 2022-09-07 20:36 | Emergency (ER) | payer OTHER ==
[2022-09-07 20:42] VITALS: RESP 20; TEMP 98.2
[2022-09-07] MEDS ORDERED: dexAMETHasone 2 MG TAB PO STA (22:03)
[2022-09-07] MEDS ORDERED: AMOXIC-POT CLAV 875-125MG 1 EACH TAB PO STA (22:03)
--- NOTE | 2022-09-07 22:05 | ED ---
ENT HPI - General Chief complaint: ENT Stated complaint: Fever,Ear Pain,Sore throat Time Seen by Provider: 09/07/22 21:30 Source: patient, RN notes reviewed, old records reviewed Mode of arrival: ambulatory Limitations: no limitations - History of Present Illness Initial comments: This is a 20-year-old female to the emergency department for evaluation of significant severe sore throat. No fevers but increased swelling of neck difficulty with swallowing with pain with swallowing. History of strep throat this feels just the same. Patient has no underlying significant medical history recently was treated for UTI MD complaint: sore throat -: days(s) Location: throat Severity: moderate Severity scale (1-10): 7 Quality: aching, sharp Consistency: constant Improves with: none Worsens with: swallowing Associated Symptoms: fever, sore throat - Related Data Home Medications Medication Instructions Recorded Confirmed Albuterol Sulfate [Proair Hfa] 1 - 2 puff INHALATION RT-Q6H PRN 03/16/21 03/16/21 Norelgestromin/Ethin.estradiol 1 patch TRANSDERM WE 03/16/21 03/16/21 [Xulane 150-35 Mcg/Day Patch] Previous Rx's Medication Instructions Recorded Cephalexin [Keflex] 500 mg PO TID 7 Days #21 cap 03/16/21 Ondansetron Odt [Zofran Odt] 4 mg PO Q8HR PRN #10 tab 04/03/22 Amoxic-Pot Clav 875-125Mg 1 tab PO Q12HR #20 tablet 09/07/22 [Augmentin 875-125] Allergies Allergy/AdvReac Type Severity Reaction Status Date / Time doxycycline Allergy Dyspnea Verified 09/07/22 20:42 Iodinated Contrast Media Allergy Anaphylaxis Verified 09/07/22 20:42 naproxen Allergy Itching Verified 09/07/22 20:42 Review of Systems ROS Statement: Those systems with pertinent positive or pertinent negative responses have been documented in the HPI. ROS Other: All systems not noted in ROS Statement are negative. Past Medical History Past Medical History: No Reported History Additional Past Medical History / Comment(s): chronic headaches, concussions History of Any Multi-Drug Resistant Organisms: None Reported Past Surgical History: No Surgical Hx Reported Additional Past Surgical History / Comment(s): eye surgery Past Psychological History: Anxiety, Depression Smoking Status: Vaper Past Alcohol Use History: Rare Past Drug Use History: None Reported General Exam Limitations: no limitations General appearance: alert, in no apparent distress Head exam: Present: atraumatic, normocephalic, normal inspection Eye exam: Present: normal appearance, PERRL, EOMI. Absent: scleral icterus, conjunctival injection, periorbital swelling ENT exam: Present: normal exam, mucous membranes moist Neck exam: Present: normal inspection. Absent: tenderness, meningismus, lymphadenopathy Respiratory exam: Present: normal lung sounds bilaterally. Absent: respiratory distress, wheezes, rales, rhonchi, stridor Cardiovascular Exam: Present: regular rate, normal rhythm, normal heart sounds. Absent: systolic murmur, diastolic murmur, rubs, gallop, clicks GI/Abdominal exam: Present: soft, normal bowel sounds. Absent: distended, tenderness, guarding, rebound, rigid Extremities exam: Present: normal inspection, full ROM, normal capillary refill. Absent: tenderness, pedal edema, joint swelling, calf tenderness Back exam: Present: normal inspection Neurological exam: Present: alert, oriented X3, CN II-XII intact Psychiatric exam: Present: normal affect, normal mood Skin exam: Present: warm, dry, intact, normal color. Absent: rash Course Vital Signs 09/07/22 09/07/22 20:40 22:45 Temperature 98.2 F 98.2 F Pulse Rate 115 H 101 H Respiratory 20 20 Rate Blood Pressure 139/71 142/79 O2 Sat by Pulse 98 98 Oximetry - Reevaluation(s) Reevaluation #1: 09/07/22 Medical record is reviewed Patient symptoms are improved here in the ER Patient informed of results and questions answered Medical Decision Making - Medical Decision Making 22-year-old female to the emergency department for evaluation of a sore throat significant with cough. Patient states pain is worse currently. Feels a prior episodes of strep throat. Patient placed on antibiotics and can be discharged home - Lab Data Lab Results 09/07/22 Range/Units 21:48 Coronavirus (PCR) Not Detected (Not Detectd) Disposition Clinical Impression: Sore throat, Strep throat Disposition: HOME SELF-CARE Condition: Good Instructions (If sedation given, give patient instructions): Strep Throat (ED) Prescriptions: Amoxic-Pot Clav 875-125Mg [Augmentin 875-125] 1 tab PO Q12HR #20 tablet Is patient prescribed a controlled substance at d/c from ED?: No Referrals: Catalina Moran MD [Primary Care Provider] - 1-2 days Time of Disposition: 22:05
[2022-09-07 22:50] VITALS: BP 142/79; PULSE 101
== END 2022-09-07 22:45 | disposition home or self-care (01) ==
LOC: EC 20:36
DX: J02.0 Streptococcal pharyngitis (principal); F41.9 Anxiety disorder, unspecified; F32.A Depression, unspecified; F17.290 Nicotine dependence, other tobacco product, uncomplicated; Z88.1 Allergy status to other antibiotic agents; Z91.041 Radiographic dye allergy status; Z88.6 Allergy status to analgesic agent; Z20.822 Contact with and (suspected) exposure to COVID-19
CPT/HCPCS: 87635; 99283; J8540

== ENCOUNTER 2023-10-25 11:08 | Emergency (ER) | payer OTHER ==
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
[2023-10-25 11:32] VITALS: PULSE 83
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
[2023-10-25 13:25] VITALS: BP 122/87; RESP 18; TEMP 97.8
== END 2023-10-25 13:08 | disposition home or self-care (01) ==
LOC: EC 11:08
DX: S06.0X0A Concussion without loss of consciousness, initial encounter (principal); F41.9 Anxiety disorder, unspecified; F32.A Depression, unspecified; F17.290 Nicotine dependence, other tobacco product, uncomplicated; R40.2412 Glasgow coma scale score 13-15, at arrival to emergency department; Z91.041 Radiographic dye allergy status; Z88.8 Allergy status to other drugs, medicaments and biological substances; Z79.899 Other long term (current) drug therapy; V48.5XXA Car driver injured in noncollision transport accident in traffic accident, initial encounter; Y92.410 Unspecified street and highway as the place of occurrence of the external cause
CPT/HCPCS: 70450; 99284

== ENCOUNTER 2023-11-24 21:14 | Emergency (ER) | payer OTHER ==
--- NOTE | 2023-11-24 21:44 | XR ---
EXAMINATION TYPE: XR chest 2V DATE OF EXAM: 11/24/2023 9:40 PM CLINICAL INDICATION:Female, 23 years old with history of cough; COMPARISON: Chest radiographs from 12/01/2014 TECHNIQUE: XR chest 2V Frontal and lateral views of the chest. FINDINGS: Lungs/Pleura: There is no evidence of pleural effusion, focal consolidation, or pneumothorax. Pulmonary vascularity: Unremarkable. Heart/mediastinum: Cardiomediastinal silhouette is unremarkable. Musculoskeletal: No acute osseous pathology. IMPRESSION: No acute cardiopulmonary disease/process.
[2023-11-24 21:48] VITALS: RESP 20; TEMP 99.3
--- NOTE | 2023-11-24 22:05 | ED ---
General Adult HPI - General Chief complaint: Upper Respiratory Infection Stated complaint: Difficulty in breathing Time Seen by Provider: 11/24/23 21:32 Source: patient, RN notes reviewed, old records reviewed Mode of arrival: ambulatory Limitations: no limitations - History of Present Illness Initial comments: Patient is a 23-year-old female who presents emergency Department complaining of upper respiratory symptoms for last 3-4 weeks. Has a history of asthma for which she takes daily inhalers for. Has not needed to use her rescue inhaler more. Denies chest pain, abdominal pain, nausea, vomiting, diarrhea. No known sick contacts. States is somewhat worse over last few days wanted evaluated. 1 ne week ago tested negative for COVID-19 the flu, RSV. No other acute complaints. Presents for further evaluation at this time. - Related Data Home Medications Medication Instructions Recorded Confirmed Albuterol Sulfate [Proair Hfa] 1 - 2 puff INHALATION RT-Q6H PRN 03/16/21 03/16/21 Norelgestromin/Ethin.estradiol 1 patch TRANSDERM WE 03/16/21 03/16/21 [Xulane 150-35 Mcg/Day Patch] Previous Rx's Medication Instructions Recorded Cephalexin [Keflex] 500 mg PO TID 7 Days #21 cap 03/16/21 Ondansetron Odt [Zofran Odt] 4 mg PO Q8HR PRN #10 tab 04/03/22 Amoxic-Pot Clav 875-125Mg 1 tab PO Q12HR #20 tablet 09/07/22 [Augmentin 875-125] Albuterol Inhaler [Ventolin Hfa 2 puff INHALATION QID #8 gm 11/24/23 Inhaler] Azithromycin [Zithromax] 250 mg PO DAILY 4 Days #4 tab 11/24/23 predniSONE [Deltasone] 40 mg PO DAILY 5 Days #10 tab 11/24/23 Allergies Allergy/AdvReac Type Severity Reaction Status Date / Time doxycycline Allergy Dyspnea Verified 11/24/23 21:32 Iodinated Contrast Media Allergy Anaphylaxis Verified 11/24/23 21:32 naproxen Allergy Itching Verified 11/24/23 21:32 Review of Systems ROS Statement: Those systems with pertinent positive or pertinent negative responses have been documented in the HPI. Review of Systems: CONST: Denies fever EYES: Denies blurry vision ENT: Endorses nasal congestion C/V: Denies Chest pain RESP: Denies shortness of breath GI: Denies abdominal pain : Denies dysuria SKIN: Denies rash. MSK: Denies joint pain. NEURO: Denies headache ROS Other: All systems not noted in ROS Statement are negative. Past Medical History Past Medical History: Asthma Additional Past Medical History / Comment(s): chronic headaches, concussions, PCOS History of Any Multi-Drug Resistant Organisms: None Reported Past Surgical History: Tonsillectomy Additional Past Surgical History / Comment(s): eye surgery Past Psychological History: Anxiety, Depression Smoking Status: Vaper Past Alcohol Use History: Rare Past Drug Use History: None Reported General Exam - General Exam Comments Initial Comments: General: Appears in no acute distress. HEAD: Normal with no signs of head trauma. EYES: PERRLA, EOMI, conjunctiva normal, no discharge. ENT: Hearing grossly intact, normal oropharynx. RESPIRATORY: Very mild wheezing. No hypoxia. No increased work of breathing. C/V: Regular rate and rhythm. S1 and S2 auscultated, peripheral pulses 2+ and intact throughout ABD: Abd is soft, nontender, nondistended EXT: Normal range of motion, no obvious deformity SKIN: No rashes or lesions observed on exposed skin. NEURO: Alert and oriented x 4. Limitations: no limitations Course Vital Signs 11/24/23 11/24/23 11/24/23 21:30 22:45 22:58 Temperature 99.3 F Pulse Rate 102 H 96 Respiratory 20 20 20 Rate Blood Pressure 142/86 114/77 O2 Sat by Pulse 95 93 L Oximetry Medical Decision Making - Medical Decision Making Was pt. sent in by a medical professional or institution (, PA, MOLECULAR BIOLOGY PROFESSOR, urgent care, hospital, or long-term...) When possible be specific @ -No Did you speak to anyone other than the patient for history (EMS, parent, family, police, friend...)? What history was obtained from this source @ -No Did you review nursing and triage notes (agree or disagree)? Why? @ -I reviewed and agree with nursing and triage notes Were old charts reviewed (outside hosp., previous admission, EMS record, old EKG, old radiological studies, urgent care reports/EKG's, long-term records)? Report findings @ -Old charts are reviewed Differential Diagnosis (chest pain, altered mental status, abdominal pain women, abdominal pain men, vaginal bleeding, weakness, fever, dyspnea, syncope, headache, dizziness, GI bleed, back pain, seizure, CVA, palpatations, mental health, musculoskeletal)? @ -Covid infection, influenza infection, URI, pneumonia. Asthma exacerbation. This list is not all-inclusive. EKG interpreted by me (3pts min.). @ -None done X-rays interpreted by me (1pt min.). @ -Chest x-ray reveals no obvious acute cardio pulmonary process. CT interpreted by me (1pt min.). @ -None done U/S interpreted by me (1pt. min.). @ -None done What testing was considered but not performed or refused? (CT, X-rays, U/S, labs)? Why? @ -None What meds were considered but not given or refused? Why? @ -None Did you discuss the management of the patient with other professionals (raffi olson i.e. , PA, MOLECULAR BIOLOGY PROFESSOR, lab, RT, psych nurse, social media coordinator, clinic charge nurse, teacher, fire control officer, case operator)? Give summary @ -No Was smoking cessation discussed for >3mins.? @ -No Was critical care preformed (if so, how long)? @ -No Were there social determinants of health that impacted care today? How? (Homelessness, low income, unemployed, alcoholism, drug addiction, transportation, low edu. Level, literacy, decrease access to med. care, prison, rehab)? @ -No Was there de-escalation of care discussed even if they declined (Discuss DNR or withdrawal of care, Hospice)? DNR status @ -No What co-morbidities impacted this encounter? (DM, HTN, Smoking, COPD, CAD, Cancer, CVA, ARF, Chemo, Hep., AIDS, mental health diagnosis, sleep apnea, morbid obesity)? @ -None Was patient admitted / discharged? Hospital course, mention meds given and route, prescriptions, significant lab abnormalities, going to OR and other pertinent info. @ -Based on the patient's presentation and physical exam, presents emergency department for upper respiratory symptoms, cough, congestion for 1 month. Worse over the last few days. Previous negative Covid testing. A history of asthma. Vital signs within acceptable limits. We will obtain viral swabs, chest x- ray. Patient agreement this plan. She does not require any breathing treatments at this time. Patient is in agreement this plan. Chest x-ray reveals no obvious acute cardiopulmonary process.Patient's viral swabs positive for RSV. I discussed results with the patient. She expressed understanding. Due to her history of asthma we will cover her with prednisone, albuterol inhaler, Z-Ashu. We'll cover for tracheobronchitis. Patient was in agreement this plan. I will provide the patient with a prescription for albuterol inhaler, prednisone, azithromycin. I instructed the patient to follow up with their PCP in the next 1-3 days. I explained that the patient should return to the emergency department if they experience any worsening symptoms. Strict return precautions were discussed with the patient. The patient expressed understanding of these instructions. I answered all questions that the patient had. The patient was discharged home in good condition with their prescriptions and follow up information. Undiagnosed new problem with uncertain prognosis? @ -No Drug Therapy requiring intensive monitoring for toxicity (Heparin, Nitro, Insulin, Cardizem)? @ -No Were any procedures done? @ -No Diagnosis/symptom? @ -Asthma exacerbation, RSV infection, tracheobronchitis Acute, or Chronic, or Acute on Chronic? @ -Acute Uncomplicated (without systemic symptoms) or Complicated (systemic symptoms)? @ -Complicated Side effects of treatment? @ -none Exacerbation, Progression, or Severe Exacerbation] @ -no Poses a threat to life or bodily function? @ -no - Lab Data Lab Results 11/24/23 Range/Units 21:34 Influenza Type A (PCR) Not Detected (Not Detectd) Influenza Type B (PCR) Not Detected (Not Detectd) RSV (PCR) Detected A (Not Detectd) SARS-CoV-2 (PCR) Not Detected (Not Detectd) Disposition Clinical Impression: Asthma, Tracheobronchitis, RSV (respiratory syncytial virus infection) Disposition: HOME SELF-CARE Condition: Good Instructions (If sedation given, give patient instructions): Asthma (ED), Acute Bronchitis (ED) Prescriptions: predniSONE [Deltasone] 40 mg PO DAILY 5 Days #10 tab Albuterol Inhaler [Ventolin Hfa Inhaler] 2 puff INHALATION QID #8 gm Azithromycin [Zithromax] 250 mg PO DAILY 4 Days #4 tab Is patient prescribed a controlled substance at d/c from ED?: No Referrals: Catalina Moran MD [Primary Care Provider] - 1-2 days Time of Disposition: 22:39
[2023-11-24] MEDS ORDERED: AZITHROMYCIN 500 MG TAB PO STA (22:48)
[2023-11-24] MEDS ORDERED: predniSONE 50 MG TAB PO STA (22:48)
[2023-11-24 23:20] VITALS: BP 114/77; PULSE 96
== END 2023-11-24 22:58 | disposition home or self-care (01) ==
LOC: EC 21:14
DX: J40 Bronchitis, not specified as acute or chronic (principal); B97.4 Respiratory syncytial virus as the cause of diseases classified elsewhere; F17.290 Nicotine dependence, other tobacco product, uncomplicated; Z91.041 Radiographic dye allergy status; Z88.8 Allergy status to other drugs, medicaments and biological substances; Z86.59 Personal history of other mental and behavioral disorders; Z20.822 Contact with and (suspected) exposure to COVID-19
CPT/HCPCS: 87636; 71046; 99285; J7512

== ENCOUNTER → 2025-03-21 | Outpatient (CLI) | payer OTHER ==
[2025-03-21 14:28] LABS: ALT 24 U/L (8-44); AST 19 U/L (13-35); Albumin 3.9 g/dL (3.8-4.9); Alkaline Phosphatase 105 U/L (41-126); BUN/Creat Ratio 8.89 Ratio (12.00-20.00); Calcium 8.9 mg/dL (8.7-10.3); Carbon Dioxide 21.9 mmol/L (21.6-31.8); Chloride 106 mmol/L (96-109); Glucose 95 mg/dL (70-110); Potassium 4.1 mmol/L (3.5-5.5); Sodium 140 mmol/L (135-145); T4, Free (Free Thyroxine) 1.01 ng/dL (0.80-1.80); Total Bilirubin 0.4 mg/dL (0.3-1.2); Total Protein 6.9 g/dL (6.2-8.2)
[2025-03-21 15:16] LABS: HCT 43.1 % (37.2-46.3); HGB 13.4 g/dL (12.0-15.0); MCH 26.4 pg (27.0-32.0); MCHC 31.1 g/dL (32.0-37.0); MCV 84.8 FL (80.0-97.0); Mean Platelet Volume 11.8 FL (9.5-12.2); NRBC Per 100 WBC 0 X 10*3/uL (0.00-0.01); Platelet Count 289 X 10*3/uL (140-440); RBC 5.08 X 10*6/uL (4.10-5.20); RDW 14.7 % (11.5-14.5); WBC 10.31 X 10*3/uL (4.50-10.00)
== END | disposition home or self-care (01) ==
LOC: LABWHC1 10:31
PROVIDERS: ATTEND Internal Medicine Cardiovascular Disease
DX: R00.2 Palpitations (principal); E78.2 Mixed hyperlipidemia
CPT/HCPCS: 36415; 80053; 84439; 84443; 85027

== ENCOUNTER 2025-04-13 11:20 | Emergency (ER) | payer OTHER ==
[2025-04-13 11:31] VITALS: TEMP 99
--- NOTE | 2025-04-13 12:10 | ED ---
General Adult HPI - General Chief complaint: Syncope Stated complaint: Near Syncope,Tachycardia Time Seen by Provider: 04/13/25 11:27 Source: patient, RN notes reviewed Mode of arrival: EMS Limitations: no limitations - History of Present Illness Initial comments: 24 year old female presents to the ED for evaluation of a near syncopal episode that occurred a few hours ago while at work today. She has a known history of elevated heart rate and see's a field machinist but says today was the first time she felt it along with chest tightness, and feeling both clammy and lightheaded. She also reports she has had a persistent dry cough for the past month that is also contributing to her chest congestion and tightness. Patient does have a history of asthma and states that she has been using her Advair and albuterol inhaler with worsening symptoms she has had no symptom relief with her inhaler she states she has been using her friend's nebulizer which does help. Patient does not have a current graphic art designer. - Related Data Home Medications Medication Instructions Recorded Confirmed Albuterol Sulfate [Proair Hfa] 1 - 2 puff INHALATION RT-Q6H PRN 03/16/21 03/16/21 Norelgestromin/Ethin.estradiol 1 patch TRANSDERM WE 03/16/21 03/16/21 [Xulane 150-35 Mcg/Day Patch] Previous Rx's Medication Instructions Recorded Cephalexin [Keflex] 500 mg PO TID 7 Days #21 cap 03/16/21 Ondansetron Odt [Zofran Odt] 4 mg PO Q8HR PRN #10 tab 04/03/22 Amoxic-Pot Clav 875-125Mg 1 tab PO Q12HR #20 tablet 09/07/22 [Augmentin 875-125] Albuterol Inhaler [Ventolin Hfa 2 puff INHALATION QID #8 gm 11/24/23 Inhaler] Azithromycin [Zithromax] 250 mg PO DAILY 4 Days #4 tab 11/24/23 predniSONE [Deltasone] 40 mg PO DAILY 5 Days #10 tab 11/24/23 Albuterol Nebulized [Ventolin 2.5 mg INHALATION Q4H PRN #75 ml 04/13/25 Nebulized] Allergies Allergy/AdvReac Type Severity Reaction Status Date / Time doxycycline Allergy Dyspnea Verified 12/30/23 21:32 Iodinated Contrast Media Allergy Anaphylaxis Verified 11/24/23 21:32 naproxen Allergy Itching Verified 11/24/23 21:32 Review of Systems ROS Statement: Those systems with pertinent positive or pertinent negative responses have been documented in the HPI. ROS Other: All systems not noted in ROS Statement are negative. Past Medical History Past Medical History: Asthma Additional Past Medical History / Comment(s): chronic headaches, concussions, PCOS. tachycardia History of Any Multi-Drug Resistant Organisms: None Reported Past Surgical History: Tonsillectomy Additional Past Surgical History / Comment(s): eye surgery Past Psychological History: Anxiety, Depression Smoking Status: Vaper Past Alcohol Use History: Rare Past Drug Use History: None Reported General Exam Limitations: no limitations General appearance: alert, in no apparent distress Head exam: Present: atraumatic, normocephalic, normal inspection Eye exam: Present: normal appearance, PERRL, EOMI. Absent: scleral icterus, conjunctival injection, periorbital swelling ENT exam: Present: normal exam, mucous membranes moist Neck exam: Present: normal inspection, full ROM. Absent: tenderness, meningismus, lymphadenopathy Respiratory exam: Present: wheezes. Absent: normal lung sounds bilaterally, respiratory distress, rales, rhonchi, stridor Cardiovascular Exam: Present: normal rhythm, tachycardia, normal heart sounds. Absent: systolic murmur, diastolic murmur, rubs, gallop, clicks GI/Abdominal exam: Present: soft, normal bowel sounds. Absent: distended, tend erness, guarding, rebound, rigid Course Vital Signs 04/13/25 04/13/25 04/13/25 11:26 12:41 13:19 Temperature 99 F Pulse Rate 106 H 92 100 Respiratory 20 18 18 Rate Blood Pressure 126/71 125/75 O2 Sat by Pulse 96 98 Oximetry 04/13/25 04/13/25 13:27 13:58 Temperature Pulse Rate 100 95 Respiratory 18 18 Rate Blood Pressure 120/71 O2 Sat by Pulse 95 Oximetry EKG Findings - EKG Comments: EKG Findings:: EKG performed at 11: 30 sinus tachycardia rate of 104 ND 144 QRS 90 QT/QTc 327/388 - EKG Results: EKG: interpreted by JANICE Medical Decision Making - Medical Decision Making Was pt. sent in by a medical professional or institution (, PA, DISINTEGRATOR OPERATOR, urgent care, hospital, or shelter...) When possible be specific @ -No Did you speak to anyone other than the patient for history (EMS, parent, family, police, friend...)? What history was obtained from this source @ -No Did you review nursing and triage notes (agree or disagree)? Why? @ -I reviewed and agree with nursing and triage notes Were old charts reviewed (outside hosp., previous admission, EMS record, old EKG, old radiological studies, urgent care reports/EKG's, shelter records)? Report findings @ -No old charts were reviewed Differential Diagnosis (chest pain, altered mental status, abdominal pain women, abdominal pain men, vaginal bleeding, weakness, fever, dyspnea, syncope, headache, dizziness, GI bleed, back pain, seizure, CVA, palpatations, mental health, musculoskeletal)? @ -Differential Syncope: Valvular disease, hypertrophic cardiomyopathy, pulmonary embolism, tamponade, tachycardia, bradycardia, OR, hypovolemia, hemorrhage, dissection, anemia, intra cranial hemorrhage, seizure, hypoglycemia, carbon monoxide poisoning, this is not meant to be an all-inclusive list. EKG interpreted by me (3pts min.). @ -As above X-rays interpreted by me (1pt min.). @ -Chest x-ray shows no acute cardiopulmonary process. CT interpreted by me (1pt min.). @ -None done U/S interpreted by me (1pt. min.). @ -None done What testing was considered but not performed or refused? (CT, X-rays, U/S, labs)? Why? @ -None What meds were considered but not given or refused? Why? @ -None Did you discuss the management of the patient with other professionals (professionals i.e. , PA, DISINTEGRATOR OPERATOR, lab, RT, psych nurse, social media marketing specialist, medical office professional instructor, teacher, liaison officer, case assembler)? Give summary @ -No Was smoking cessation discussed for >3mins.? @ -No Was critical care preformed (if so, how long)? @ -No Were there social determinants of health that impacted care today? How? (Jeffery elessness, low income, unemployed, alcoholism, drug addiction, transportation, low edu. Level, literacy, decrease access to med. care, custodial, rehab)? @ -No Was there de-escalation of care discussed even if they declined (Discuss DNR or withdrawal of care, Hospice)? DNR status @ -No What co-morbidities impacted this encounter? (DM, HTN, Smoking, COPD, CAD, Cancer, CVA, ARF, Chemo, Hep., AIDS, mental health diagnosis, sleep apnea, morbid obesity)? @ -Asthma Was patient admitted / discharged? Hospital course, mention meds given and route, prescriptions, significant lab abnormalities, going to OR and other pertinent info. @ -Discharged patient is currently not dizzy no recent lightheadedness. Patient near-syncopal episode. Patient does have severe asthma unalleviated and failed treatment with Advair and albuterol inhaler she will be discharged with nebulizer, nebulizer solution and follow-up with pulmonary. Undiagnosed new problem with uncertain prognosis? @ -No Drug Therapy requiring intensive monitoring for toxicity (Heparin, Nitro, Insulin, Cardizem)? @ -No Were any procedures done? @ -No Diagnosis/symptom? @ -Asthma, near syncope Acute, or Chronic, or Acute on Chronic? @ -Acute Uncomplicated (without systemic symptoms) or Complicated (systemic symptoms)? @ -Complicated Side effects of treatment? @ -No Exacerbation, Progression, or Severe Exacerbation? @ -No Poses a threat to life or bodily function? How? (Chest pain, USA, OR, pneumonia, PE, COPD, DKA, ARF, appy, cholecystitis, CVA, Diverticulitis, Homicidal, Suicidal, threat to staff... and all critical care pts) @ -No - Lab Data Result diagrams: 04/13/25 12:07 04/13/25 12:07 Lab Results 04/13/25 04/13/25 04/13/25 Range/Units 12:07 12:07 12:08 WBC 10.69 H (4.50-10.00) 10*3/uL RBC 4.90 (4.10-5.20) 10*6/uL Hgb 13.1 (12.0-15.0) g/dL Hct 40.4 (37.2-46.3) % MCV 82.4 (80.0-97.0) fL MCH 26.7 L (27.0-32.0) pg MCHC 32.4 (32.0-37.0) g/dL Plt Count 303 (140-440) 10*3/uL MPV 11.3 (9.5-12.2) fL Immature Gran % (Auto) 0.3 % Neutrophils % 83.3 % Lymphocytes % 11.0 % Monocytes % 4.7 % Eosinophils % 0.0 % Basophils % 0.7 % Immature Gran # 0.03 (0.00-0.04) 10*3/uL Neutrophils # 8.91 H (1.80-7.70) 10*3/uL Lymphocytes # 1.18 (0.90-5.00) 10*3/uL Monocytes # 0.50 (0.20-1.00) 10*3/uL Eosinophils # 0.00 L (0.04-0.35) 10*3/uL Basophils # 0.07 (0.00-0.10) 10*3/uL Sodium 139 (137-145) mmol/L Potassium 3.8 (3.5-5.1) mmol/L Chloride 106 (98-107) mmol/L Carbon Dioxide 20 L (22-30) mmol/L Anion Gap 13 mmol/L BUN 11 (7-17) mg/dL Creatinine 0.81 (0.52-1.04) mg/dL Est GFR (CKD-EPI)AfAm >90 (>60 ml/min/1.73 sqM) Est GFR (CKD-EPI)NonAf >90 (>60 ml/min/1.73 sqM) Glucose 121 H (74-99) mg/dL Calcium 9.5 (8.4-10.2) mg/dL Magnesium 1.7 (1.6-2.3) mg/dL Total Bilirubin 0.5 (0.2-1.3) mg/dL AST 30 (14-36) U/L ALT 42 H (4-34) U/L Alkaline Phosphatase 97 (38-126) U/L Total Protein 7.8 (6.3-8.2) g/dL Albumin 4.3 (3.5-5.0) g/dL Urine Color Colorless Urine Appearance Clear (Clear) Urine pH 6.0 (5.0-8.0) Ur Specific [place] 1.012 (1.001-1.035) Urine Protein Negative (Negative) Urine Glucose (UA) Negative (Negative) Urine Ketones Negative (Negative) Urine Blood Negative (Negative) Urine Nitrite Negative (Negative) Urine Bilirubin Negative (Negative) Urine Urobilinogen <2.0 (<2.0) mg/dL Ur Leukocyte Esterase Negative (Negative) Urine HCG, Qual (Not Detectd) 04/13/25 Range/Units 12:08 WBC (4.50-10.00) 10*3/uL RBC (4.10-5.20) 10*6/uL Hgb (12.0-15.0) g/dL Hct (37.2-46.3) % MCV (80.0-97.0) fL MCH (27.0-32.0) pg MCHC (32.0-37.0) g/dL Plt Count (140-440) 10*3/uL MPV (9.5-12.2) fL Immature Gran % (Auto) % Neutrophils % % Lymphocytes % % Monocytes % % Eosinophils % % Basophils % % Immature Gran # (0.00-0.04) 10*3/uL Neutrophils # (1.80-7.70) 10*3/uL Lymphocytes # (0.90-5.00) 10*3/uL Monocytes # (0.20-1.00) 10*3/uL Eosinophils # (0.04-0.35) 10*3/uL Basophils # (0.00-0.10) 10*3/uL Sodium (137-145) mmol/L Potassium (3.5-5.1) mmol/L Chloride (98-107) mmol/L Carbon Dioxide (22-30) mmol/L Anion Gap mmol/L BUN (7-17) mg/dL Creatinine (0.52-1.04) mg/dL Est GFR (CKD-EPI)AfAm (>60 ml/min/1.73 sqM) Est GFR (CKD-EPI)NonAf (>60 ml/min/1.73 sqM) Glucose (74-99) mg/dL Calcium (8.4-10.2) mg/dL Magnesium (1.6-2.3) mg/dL Total Bilirubin (0.2-1.3) mg/dL AST (14-36) U/L ALT (4-34) U/L Alkaline Phosphatase (38-126) U/L Total Protein (6.3-8.2) g/dL Albumin (3.5-5.0) g/dL Urine Color Urine Appearance (Clear) Urine pH (5.0-8.0) Ur Specific [place] (1.001-1.035) Urine Protein (Negative) Urine Glucose (UA) (Negative) Urine Ketones (Negative) Urine Blood (Negative) Urine Nitrite (Negative) Urine Bilirubin (Negative) Urine Urobilinogen (<2.0) mg/dL Ur Leukocyte Esterase (Negative) Urine HCG, Qual Not Detected (Not Detectd) Disposition Clinical Impression: Asthma, Near syncope Disposition: HOME SELF-CARE Condition: Stable Instructions (If sedation given, give patient instructions): Near Syncope (ED) Additional Instructions: Please return to the Emergency Department if symptoms worsen or any other concerns. Prescriptions: Albuterol Nebulized [Ventolin Nebulized] 2.5 mg INHALATION Q4H PRN #75 ml PRN Reason: difficulty in breathing Is patient prescribed a controlled substance at d/c from ED?: No Referrals: Catalina Moran MD [Primary Care Provider] - 1-2 days Time of Disposition: 14:04
[2025-04-13 12:15] LABS: Basophils # (A) 0.07 10*3/uL (0.00-0.10); Basophils % (A) 0.7 %; HCT 40.4 % (37.2-46.3); HGB 13.1 g/dL (12.0-15.0); Lymphocytes # (A) 1.18 10*3/uL (0.90-5.00); MCH 26.7 pg (27.0-32.0); MCHC 32.4 g/dL (32.0-37.0); MCV 82.4 fL (80.0-97.0); Mean Platelet Volume 11.3 fL (9.5-12.2); Monocytes % (A) 4.7 %; Neutrophils # (A) 8.91 10*3/uL (1.80-7.70); Neutrophils % (A) 83.3 %; Platelet Count 303 10*3/uL (140-440); RDW 14.6 % (11.5-14.5); WBC 10.69 10*3/uL (4.50-10.00)
[2025-04-13] MEDS: SODIUM CHLORIDE 0.9% 1,000 ML IV STA (12:17)
[2025-04-13 12:23] LABS: ALT 42 U/L (4-34); AST 30 U/L (14-36); African American GFR (CKD) >90 (>60 ml/min/1.73 sqM); Albumin 4.3 g/dL (3.5-5.0); Alkaline Phosphatase 97 U/L (38-126); Anion Gap 13 mmol/L; Blood Urea Nitrogen 11 mg/dL (7-17); Calcium 9.5 mg/dL (8.4-10.2); Carbon Dioxide 20 mmol/L (22-30); Chloride 106 mmol/L (98-107); Glucose 121 mg/dL (74-99); Magnesium 1.7 mg/dL (1.6-2.3); Non-African American GFR(CKD) >90 (>60 ml/min/1.73 sqM); Potassium 3.8 mmol/L (3.5-5.1); Sodium 139 mmol/L (137-145); Total Bilirubin 0.5 mg/dL (0.2-1.3); Total Protein 7.8 g/dL (6.3-8.2)
[2025-04-13 12:30] LABS: Appearance,Urine Clear (Clear); Bilirubin,Urine Negative (Negative); Blood,Urine Negative (Negative); Color,Urine Colorless; Glucose,Urine (UA) Negative (Negative); Ketones,Urine Negative (Negative); Leukocyte Esterase,Urine Negative (Negative); Nitrite,Urine Negative (Negative); Protein,Urine Negative (Negative); Specific Gravity,Urine 1.012 (1.001-1.035); Urobilinogen,Urine <2.0 mg/dL (<2.0)
--- NOTE | 2025-04-13 12:38 | XR ---
EXAMINATION TYPE: XR chest 2V DATE OF EXAM: 04/13/2025 CLINICAL INDICATION: Female, 24 years old with history of sob, TECHNIQUE: Frontal and lateral views of the chest are obtained. COMPARISON: Chest x-ray November 24, 2023 FINDINGS: There is no focal air space opacity, pleural effusion, or pneumothorax seen. The cardiac silhouette size is upper limits of normal. The osseous structures are intact. IMPRESSION: No acute pulmonary infiltrate. [facility], , 04/13/2025 12:36 PM
[2025-04-13] MEDS: IPRATROPIUM-ALBUTEROL 3 ML NEB INHALATION STA (13:19)
[2025-04-13 14:37] VITALS: BP 130/60; PULSE 68; RESP 16
== END 2025-04-13 14:37 | disposition home or self-care (01) ==
LOC: EC 11:20
DX: R55 Syncope and collapse (principal); J45.909 Unspecified asthma, uncomplicated; F17.290 Nicotine dependence, other tobacco product, uncomplicated; Z88.1 Allergy status to other antibiotic agents; Z88.6 Allergy status to analgesic agent; Z91.041 Radiographic dye allergy status; Y99.0 Civilian activity done for income or pay
CPT/HCPCS: 36415; 71046; 80053; 81003; 81025; 83735; 85025; 93005; 94640; 96360; 99285